=== PATIENT | male | born 1980 | race Two or more races ===

== ENCOUNTER 2018-09-05 09:23 | Day surgery (SDC) | payer OTHER ==
[2018-09-02 18:54] LABS: BASOPHIL % 0.6 % (0-2); PLATELET COUNT 143 x10^3mcL (130-400)
[2018-09-02 19:00] LABS: RED CELL DISTRIBUTION WIDTH 17.7 % (11.5-14.5)
[2018-09-02 19:11] LABS: CALCIUM 8.9 mg/dL (8.5-10.1); CARBON DIOXIDE 23.9 mmol/L (21-32)
[2018-09-02 21:17] LABS: POTASSIUM SERUM 7.1 mmol/L (3.5-5.1)
[~2018-09-05] VITALS: Ht 172.7 cm; Wt 76.2 kg
[2018-09-05 10:00] VITALS: BP 133/89
[2018-09-05 10:39] LABS: CARBON DIOXIDE 28.4 mmol/L (21-32)
[2018-09-05 10:57] LABS: CREATININE SERUM 9.9 mg/dL (0.7-1.3); POTASSIUM SERUM 5.6 mmol/L (3.5-5.1)
[2018-09-05 14:59] VITALS: BP 147/96
== END 2018-09-05 14:30 | disposition home or self-care (01) ==
LOC: DS 09:23 → OR 11:00 → DS 11:00
PROVIDERS: Anesthesiology; Surgery
DX: I13.2 Hypertensive heart and chronic kidney disease with heart failure and with stage 5 chronic kidney disease, or end stage renal disease (principal); N17.9 Acute kidney failure, unspecified; N18.6 End stage renal disease; I50.9 Heart failure, unspecified; E87.5 Hyperkalemia; Z79.82 Long term (current) use of aspirin; Z79.899 Other long term (current) drug therapy; Z98.890 Other specified postprocedural states; Z95.818 Presence of other cardiac implants and grafts; Z99.2 Dependence on renal dialysis
CPT/HCPCS: J0690; J1644; J2001; J2250; J3010; J3490; J7120

== ENCOUNTER 2018-10-09 19:20 | Emergency (ER) | payer OTHER ==
[~2018-10-09] VITALS: Ht 172.7 cm; Wt 80.3 kg
[2018-10-09 20:56] VITALS: BP 134/79
== END 2018-10-09 20:56 | disposition home or self-care (01) ==
LOC: ED 19:20
DX: T82.42XA Displacement of vascular dialysis catheter, initial encounter (principal); N18.6 End stage renal disease; Z99.2 Dependence on renal dialysis